=== PATIENT | female | born 1950 | race Caucasian/White ===

== ENCOUNTER 2017-01-29 15:27 | Emergency (ER) | payer MEDICAID ==
[2017-01-29] MEDS ORDERED: NITROGLYCERIN 0.4 MG TAB.SUBL SUBLINGUAL ONE ×2 (15:46→15:52)
[2017-01-29 15:50] LABS: BASOPHIL# 0.2 X 10^3uL (0.0-0.1); BASOPHILS 2.6 % (0.0-2.0); EOSINOPHILS 2.6 % (0.0-6.0); EOSINOPHILS# 0.2 X 10^3uL (0.0-0.4); HEMATOCRIT 52.6 % (36.0-48.0); HEMOGLOBIN 17.8 g/dL (12.0-16.0); LYMPHOCYTES 15.4 % (20.0-40.0); LYMPHOCYTES# 1.4 X 10^3uL (0.8-3.8); MEAN CELL VOLUME 90.6 fL (80.0-100.0); MEAN CORPUS. HGB CONCENTRATION 33.8 g/dL (32.0-36.0); MEAN CORPUSCULAR HEMOGLOBIN 30.6 pg (29.0-35.0); MEAN PLATELET VOLUME 11.3 fL (7.4-10.4); MONOCYTES 11.9 % (2.0-10.0); MONOCYTES# 1.1 X 10^3uL (0.2-1.0); NEUTROPHILS 67.5 % (54.0-75.0); NEUTROPHILS# 6.1 X 10^3uL (2.6-6.7); PLATELET COUNT 224 X 10^3uL (130-440); RED BLOOD COUNT 5.81 X 10^6uL (4.20-6.10); RED CELL DISTRIBUTION WIDTH 12.9 % (11.5-14.5)
[2017-01-29 16:00] LABS: BLOOD UREA NITROGEN 20 mg/dL (7-17); CALCIUM 10.1 mg/dL (8.4-10.2); CHLORIDE 104 mmol/L (98-107); CREATININE 0.8 mg/dL (0.5-1.0); EST GLOMERULAR FILTRATION RATE > 60 mL/min; GLUCOSE 137 mg/dL (70-100); MAGNESIUM 1.9 mg/dL (1.6-2.3); POTASSIUM 4.4 mmol/L (3.5-5.1); SODIUM 141 mmol/L (137-145)
[2017-01-29 16:12] LABS: TROPONIN I < 0.012 ng/mL (0.00-0.034)
--- NOTE | 2017-01-29 17:06 | ER PHYSICIAN DOCUMENTATION ---
Physician Documentation [facility] Name:Geraldine Luna Age:66 yrs Sex:Female :1950 Arrival Date:01/29/2017 Time:15:27 BedTrauma C Private MD: Matt Kendall Disposition: 01/29 16:26 Critical Care: not applicable. co Disposition: 01/29/17 16:26 Discharged to Home/Self Care. Impression: Atypical Chest Pain, Hypertension. - Condition is Good. - Discharge Instructions: HYPERTENSION, Established, CHEST PAIN Atypical - CHEST PAIN, Uncertain Cause. - Medical Reconciliation form form. - Follow up: Joss Peter MD; When: 2 - 3 days; Reason: Recheck today's complaints. - Problem is new. - Symptoms are resolved. HPI: 16:22 This 66 yrs old Female presents to ER via Private Vehicle with complaints of sc Chest Pain > 30 y/o. 16:22 The patient or guardian reports chest pain that is located primarily in the chest sc diffusely. Onset: 2.5 hour(s) ago. The pain does not radiate. There has been no movement of pain. Associated signs and symptoms: Pertinent positives: lightheadedness, nausea. The chest pain is described as vague heaviness, washed over her, felt warm. Duration: The patient or guardian reports a single episode, that is now resolved. Historical: - Allergies: SULFA (SULFONAMIDES); nipromean; Sulfa (Sulfonamide Antibiotics); - Home Meds: 1. Lyrica Oral 2. Cymbalta 3. Albian 4. Paxil Oral 5. Gabapentin - PMHx: MS; DIABETES - NIDDM; Pulmonary Edema - CHF (January 07, 2016); CHRONIC PAIN; - Tetanus: unknown. - Ebola Screening: : No symptoms or risks identified at this time. . - Immunization history: Flu Vaccine unknown. - Social history: Smoking status: unknown if patient ever smoked tobacco. ROS: 16:24 Eyes: Negative for injury, pain, redness, and discharge. sc ENT: Negative for injury, pain, and discharge. Neck: Negative for injury, pain, and swelling. Respiratory: Negative for shortness of breath, cough, wheezing, and pleuritic chest pain. Abdomen/GI: Negative for abdominal pain, nausea, vomiting, diarrhea, and constipation. Back: Negative for injury and pain. MS/Extremity: Negative for injury and deformity. Skin: Negative for injury, rash, and discoloration. 16:24 Neuro: Negative for headache, weakness, numbness, tingling, and seizure. sc 16:24 Constitutional: Positive for fatigue. 16:24 Cardiovascular: Positive for chest pain. Exam: Constitutional: This is a well developed, well nourished patient who is awake, alert, and in no acute distress. Head/Face: Normocephalic, atraumatic. Eyes: Pupils equal round and reactive to light, extra-ocular motions intact. Lids and lashes normal. Conjunctiva and sclera are non-icteric and not injected. Cornea within normal limits. Periorbital areas with no swelling, redness, or edema. ENT: Nares patent. No nasal discharge, no septal abnormalities noted. Tympanic membranes are normal and external auditory canals are clear. Oropharynx with no redness, swelling, or masses, exudates, or evidence of obstruction, uvula midline. Mucous membranes moist. Neck: Trachea midline, no thyromegaly or masses palpated, and no cervical lymphadenopathy. Supple, full range of motion without nuchal rigidity, or vertebral point tenderness. No meningismus. Chest/axilla: Normal chest wall appearance and motion. Nontender with no deformity. No lesions are appreciated. Cardiovascular: Regular rate and rhythm with a normal S1 and S2. No gallops, murmurs, or rubs. Normal PMI, no JVD. No pulse deficits. Respiratory: Lungs have equal breath sounds bilaterally, clear to auscultation and percussion. No rales, rhonchi or wheezes noted. No increased work of breathing, no retractions or nasal flaring. Abdomen/GI: Soft, non-tender, with normal bowel sounds. No distension or tympany. No guarding or rebound. No evidence of tenderness throughout. Back: No spinal tenderness. No costovertebral tenderness. Full range of motion. Skin: Warm, dry with normal turgor. Normal color with no rashes, no lesions, and no evidence of cellulitis. MS/ Extremity: Pulses equal, no cyanosis. Neurovascular intact. Full, normal range of motion, negative Homans's, calves equal bilaterally. 16:24 Neuro: Awake and alert, GCS 15, oriented to person, place, time, and situation. co Cranial nerves II-XII grossly intact. Motor strength 5/5 in all extremities. Sensory grossly intact. Cerebellar exam normal. Normal gait. 16:27 Cardiovascular: Rate: normal, Rhythm: regular. co Vital Signs: 15:53 BP 119 / 57; Pulse 98; Resp 26; Pulse Ox 91% ; ma 16:02 BP 107 / 66; Pulse 79; Resp 19; Pulse Ox 92% ; ma 16:22 BP 119 / 57; Pulse 84; Resp 20; Pulse Ox 96% on R/A; ma 17:00 BP 113 / 72; Pulse 75; Pulse Ox 93% on R/A; ma MDM: 15:41 Patient medically screened. co 16:25 Differential diagnosis: acute myocardial infarction, anxiety, gastroesophageal reflux sc disease (GERD), unstable angina. Patient took aspirin in the Emergency Department. Patient refused fibrinolytic. Data reviewed: vital signs, nurses notes, old medical records, lab test result(s), EKG, radiologic studies, and as a result, I will continue to observe the patient. Data interpreted: monitor technician: rate is 78 beats/min, rhythm is normal sinus rhythm. ECG:. 16:49 Counseling: I had a detailed discussion with the patient and/or guardian regarding: the co historical points, exam findings, and any diagnostic results supporting the discharge/admit diagnosis, lab results, radiology results, the need for outpatient follow up, to return to the emergency department if symptoms worsen or persist or if there are any questions or concerns that arise at home, Patient with multiple complaints about service during ED stay despite approx 35 minutes of physician time at bedside. Says she felt her complaints were diminished and minimized but then she apologized after the results of her evaluation were reviewed with her a second time. She apologized for her part in our communication and I invited her to call if she had further questions.. 01/29 15:59 Order name: CBC AUTO DIF, MDIF/RMOR IF IND; Complete Time: 16:22 EDMS 01/29 16:22 Interpretation: Normal Except: HEMATOCRIT 52.6. co 01/29 16:01 Order name: DDIMER; Complete Time: 16:22 EDMS 01/29 16:22 Interpretation: Normal. co 01/29 16:04 Order name: BASIC METABOLIC PANEL; Complete Time: 16:22 EDMS 01/29 16:22 Interpretation: Normal. co 01/29 16:04 Order name: MAGNESIUM; Complete Time: 16:22 EDKS 01/29 16:22 Interpretation: Normal. co 01/29 16:10 Order name: PROTIME/INR; Complete Time: 16:22 EDMS 01/29 16:22 Interpretation: Normal. co 01/29 16:12 Order name: TROPONIN I; Complete Time: 16:22 EDKS 01/29 16:22 Interpretation: Normal. co 01/29 15:43 Order name: 12-lead EKG; Complete Time: 16: co 01/29 15:43 Order name: Iv Saline Lock; Complete Time: 16: co 01/29 15:43 Order name: Place Patient On Monitor; Complete Time: 16: co 01/29 15:43 Order name: Pulse Ox Continuous; Complete Time: 16: co EC:25 Rate is 79 beats/min. Rhythm is regular. QRS [place] is Normal. [place] interval is normal. QRS sc interval is normal. QT interval is normal. No Q waves. T waves are Normal. No ST changes noted. Clinical impression: Normal ECG. Interpreted by me. Reviewed by me. Dispensed Medications: 15:35 Drug: Aspirin Chewable Tablet 324 mg; Route: PO; ma 16:06 Follow up: Response: No adverse reaction mi 15:35 Drug: Nitroglycerin 0.4 mg; {Note: 2nd dose given at 1540, third at 1545.} Route: ma Sublingual; 16:07 Follow up: Response: Pain is decreased ma Signatures: Cassi Murphy RN RN ma Friel, Nicole, RN RN nf Chew, Scott, MD MD co
--- NOTE | 2017-01-29 17:06 | ER NURSING DOCUMENTATION ---
Nurse's Notes [facility] Name:Geraldine Luna Age:66 yrs Sex:Female :1950 Arrival Date:01/29/2017 Time:15:27 BedTrauma C Private MD: Diagnosis:Atypical Chest Pain;Hypertension Presentation: 01/29 15:42 Presenting complaint: Patient states: Pt states she has had right sided anterior chest ma pain for 1-2 hours Became very diaphoretic so she had to leave store where she was shopping Normally is on 3L O2 Wasn't on at time of pain. Transition of care: Home. Asprin Given Given in ED. 15:42 Acuity: ASIYA 2 ma 15:42 Method Of Arrival: Private Vehicle ma Triage Assessment: 15:53 General: Appears in no apparent distress, Behavior is cooperative. Pain: Complains of ma pain in anterior aspect of right upper chest. Cardiovascular: Rhythm is sinus rhythm. 16:59 Cardiovascular: Rhythm is sinus rhythm. ma Historical: - Allergies: SULFA (SULFONAMIDES); nipromean; Sulfa (Sulfonamide Antibiotics); - Home Meds: 1. Lyrica Oral 2. Cymbalta 3. Albian 4. Paxil Oral 5. Gabapentin - PMHx: MS; DIABETES - NIDDM; Pulmonary Edema - CHF (January 07, 2016); CHRONIC PAIN; - Tetanus: unknown. - Ebola Screening: : No symptoms or risks identified at this time. . - Immunization history: Flu Vaccine unknown. - Social history: Smoking status: unknown if patient ever smoked tobacco. Screenin:54 Infectious Disease Risk Hepatitis. Abuse screen: Denies threats or abuse. Nutritional ma screening: No deficits noted. Assessment: 15:57 Pain: Pain does not radiate. Pain began 2 hours ago. ma 17:01 Reassessment: Patient states symptoms have improved. Patient appears in no apparent ma distress at this time. Vital Signs: 15:53 BP 119 / 57; Pulse 98; Resp 26; Pulse Ox 91% ; ma 16:02 BP 107 / 66; Pulse 79; Resp 19; Pulse Ox 92% ; ma 16:22 BP 119 / 57; Pulse 84; Resp 20; Pulse Ox 96% on R/A; ma 17:00 BP 113 / 72; Pulse 75; Pulse Ox 93% on R/A; ma ED Course: 15:27 Oxygen Oxygen administration via nasal cannula @ 3L/min. ma 15:31 Patient arrived in ED. 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 NIBP on. ma 15:37 EKG done. (by ED staff). Reviewed by Matt Cuevas MD. ma 15:41 Matt Cuevas MD is Attending Physician. wv 15:42 Cassi Murphy, RN is Primary Nurse. ma 15:44 Triage completed. ma 15:45 Inserted peripheral IV: in right forearm and blood collected. ma 15:47 Port Xray Completed. pm1 15:54 Valuables Remains with patient. ma 16:26 Joss Peter MD is Referral Physician. wv 17:01 Discontinued IV intact, bleeding controlled, pressure dressing applied, No ma redness/swelling at site. Administered Medications: 15:35 Drug: Aspirin Chewable Tablet 324 mg; Route: PO; ma 16:06 Follow up: Response: No adverse reaction ma 15:35 Drug: Nitroglycerin 0.4 mg; {Note: 2nd dose given at 1540, third at 1545.} Route: ma Sublingual; 16:07 Follow up: Response: Pain is decreased ma Outcome: 16:26 Discharge ordered by . wv 17:02 Discharged to home ma 17:02 Condition: stable 17:02 Discharge instructions given to patient, Instructed on discharge instructions, follow up and referral plans. Demonstrated understanding of instructions. 17:05 Patient left the ED. 03/ 09:38 Discharge F/U Call: Unable to reach: no answer st Signatures: Luciana Tomlinson RN RN Cassi Murphy, Becca Hall RN, ma, RN RN Matt Cuevas MD MD wv Concepcion Hart pm1 Erinn Cuevas, Reg Reg arc
--- NOTE | 2017-02-01 10:54 | RADIOLOGY REPORT ---
A limited single portable view of the chest is compared with prior examination dated 01/07/2016. The heart and vessels are now within normal limits. The lung verdin are clear. No infiltrate, fluid or pneumothorax is seen. IMPRESSION: Interval clearing of the previously described congestive changes. No acute cardiopulmonary abnormality is identified. MTDD
== END 2017-01-29 17:06 | disposition home or self-care (01) ==
LOC: ER 15:27
DX: R07.89 Other chest pain (principal); I10 Essential (primary) hypertension; R53.83 Other fatigue; R42 Dizziness and giddiness; G35 Multiple sclerosis; E11.9 Type 2 diabetes mellitus without complications; I50.9 Heart failure, unspecified; Z79.899 Other long term (current) drug therapy
CPT/HCPCS: 71010; 80048; 83735; 84484; 85025; 85379; 85610; 93005; 99285